=== PATIENT | male | born 1960 ===

== ENCOUNTER → 2017-04-04 | Emergency (ER) | payer OTHER ==
[~2017-04-04] VITALS: Ht 152.4 cm; Wt 70.3 kg
[~2017-04-04] MED LIST: INDOMETHACIN50 MG
== END | disposition home or self-care (01) ==
LOC: ER 18:40
DX: G44.209 Tension-type headache, unspecified, not intractable (principal)

== ENCOUNTER → 2017-04-23 14:05 | Outpatient (CLI) | payer OTHER | END | disposition home or self-care (01) | LOC: LAB 14:05 | DX: E11.9 Type 2 diabetes mellitus without complications (principal) ==